=== PATIENT | female | born 1970 | race Caucasian/White ===

== ENCOUNTER 2022-10-02 08:30 | Inpatient (IN) | payer OTHER, SELFPAY ==
[2022-10-02] VITALS (21 sets, daily range): BP systolic 101–170; BP diastolic 57–104; PULSE 83–142; RESP 18–28; TEMP 36.2–36.7; O2SAT 93–98; BMI 53.4; BMI 50.7
--- NOTE | 2022-10-02 09:01 | EKG12_ITS ---
Test Reason : WEAKNESS Blood Pressure : / mmHG Vent. Rate : 135 BPM Atrial Rate : 000 BPM P-R Int : 000 ms QRS Dur : 090 ms QT Int : 266 ms P-R-T Axes : 000 -04 065 degrees QTc Int : 399 ms Atrial fibrillation with rapid ventricular response Abnormal ECG Confirmed by KLEBER MORROW, AMOS ([id number]), continuity editor NATALIE TRAVIS ([id number]) on 10/03/2022 8:26:21 AM Referred By: Confirmed By:AOMS SHAHID MD
--- NOTE | 2022-10-02 09:03 | EX.ED.DYSGE1 ---
HPI History of Present Illness Chief Complaint: Weakness Detail of Chief Complaint: I just do not feel right Informant: patient Narrative Narrative: Patient presents stating she just does not feel right and feels weak all over. She noted symptoms this morning. She does state that while lying in bed last evening she had a 15-minute episode of chest pain with some pain into her left arm. The pain subsided and she was able to go back to sleep. This morning she states she felt too weak to finish her shower. She did have some nausea. She denies any chest pain currently. She does have some palpitations and sensation of her heart racing. She did not take any of her normal medications this morning. [facility] Medical History Diabetes Hypertension Home Medications amlodipine 5 mg tablet 10 mg PO DAILY 09/24/16 [History Last Taken Unknown] glipizide 10 mg tablet, extended release 24 hr (Glucotrol XL) 10 mg PO BID 09/24/16 [History Last Taken Unknown] losartan 100 mg tablet 100 mg PO DAILY 09/24/16 [History Last Taken Unknown] metformin 1,000 mg tablet 1,000 mg PO BIDCM 09/24/16 [History Last Taken Unknown] metoprolol tartrate 50 mg tablet 50 mg PO BID 09/24/16 [History Last Taken Unknown] cholecalciferol (vitamin D3) 50 mcg (2,000 unit) tablet 50 mcg PO DAILY 10/02/22 [History Last Taken Unknown] semaglutide 0.25 mg or 0.5 mg (2 mg/1.5 mL) subcutaneous pen injector (Ozempic) 0.25 mg subcut SA 10/02/22 [History Last Taken Unknown] Allergy/AdvReac Type Severity Reaction Status Date / Time lisinopril AdvReac Other Verified 10/02/22 08:31 Surgical History H/O parathyroidectomy Social History Smoking Status: Former smoker ROS ROS ED Constitutional Constitutional ED: Denies chills or fever(s) Eyes Eyes: Denies change in vision or discharge from eye(s) ENT ENT ED: Denies discharge from eye(s), rhinorrhea or sore throat Cardiovascular Cardiovascular: Reports chest pain, palpitations and racing heartbeat Respiratory/Chest Respiratory/Chest: Denies cough or dyspnea Gastrointestinal Gastrointestinal: Reports nausea; Denies abdominal pain or vomiting Genitourinary Genitourinary ED: Denies dysuria Musculoskeletal Musculoskeletal: Denies back pain or extremity pain Integumentary Denies Abrasions or rash Neurologic Neurologic: Reports weakness; Denies headache(s) Psychiatric Psychiatric: Denies anxiety or depression Allergic/Immunologic Allergic/Immunologic ED: Denies lip swelling or urticaria EXAM Physical Exam Const Vital Signs: 10/02/22 08:31 10/02/22 08:54 10/02/22 08:54 Temperature 97.2 F L Temperature Source Temporal Pulse Rate 122 H 142 H Respiratory Rate 18 20 H Respiratory Effort Normal Non-Labored Respiratory Pattern Normal Blood Pressure 170/98 H 149/75 H Blood Pressure Mean 122 99 Pulse Ox 98 96 Oxygen Delivery Method Room Air Room Air Positive well nourished, well developed and obese General Appearance ED: well developed Nutritional Appearance: obese HEENT Reports normocephalic and head/scalp atraumatic Eyes PERRL and EOMs intact bilaterally Neck supple Chest Wall inspection of chest normal and palpation of chest normal Resp normal respiratory effort and clear to auscultation bilaterally Cardio Rhythm: abnormal rhythm irregularly irregular GI normal to inspection, nondistended, normoactive bowel sounds Palpation: soft Extremity normal to inspection Neuro oriented x3 and no sensory deficits noted Sensorium / Orientation: alert Motor Exam: strength 5/5 throughout Psych mental status grossly normal Skin no rashes or lesions noted MDM MDM MDM Narrative Medical decision making narrative: Patient placed on hall monitor. EKG, chest x-ray, lab work obtained. Patient ordered Cardizem for rate control. Lab Data Attestation: I reviewed the patient's lab results. Labs: Laboratory Results - last 24 hr 10/02/22 10/02/22 10/02/22 09:05 09:05 11:20 WBC 9.1 RBC 5.06 Hgb 15.1 H Hct 44.8 MCV 88.5 MCH 29.8 MCHC 33.7 RDW Std Deviation 43.0 RDW Coeff of Amilcar 13.3 Plt Count 352 MPV 9.5 Immature Gran % (Auto) 0.600 Neut % (Auto) 69.5 Lymph % (Auto) 23.1 [place] % (Auto) 5.2 Eos % (Auto) 0.9 Baso % (Auto) 0.7 Absolute Neuts (auto) 6.3 Absolute Lymphs (auto) 2.09 Nucleated RBC % 0 PT 13.5 INR 1.1 APTT 27.3 Sodium 132 L Potassium 4.4 Chloride 99 Carbon Dioxide 26.0 Anion Gap 7 BUN 16 Creatinine 0.84 Estim Creat Clear Calc 84.72 Est GFR (MDRD) Af Amer 92 Est GFR (MDRD) Non-Af 76 BUN/Creatinine Ratio 19.1 Glucose 350 H Calcium 9.2 Troponin I High Sens 6 TSH 6.15 H 10/02/22 11:20 WBC RBC Hgb Hct MCV MCH MCHC RDW Std Deviation RDW Coeff of Amilcar Plt Count MPV Immature Gran % (Auto) Neut % (Auto) Lymph % (Auto) [place] % (Auto) Eos % (Auto) Baso % (Auto) Absolute Neuts (auto) Absolute Lymphs (auto) Nucleated RBC % PT INR APTT Sodium Potassium Chloride Carbon Dioxide Anion Gap BUN Creatinine Estim Creat Clear Calc Est GFR (MDRD) Af Amer Est GFR (MDRD) Non-Af BUN/Creatinine Ratio Glucose Calcium Troponin I High Sens 8 TSH Radiography Chest X-Ray - ED: 1 View, Read by ED Physician and Chronic Changes Diagnostic Testing: Clinical Impression(s) from Imaging Studies Chest X-Ray 10/02/22 10:50 IMPRESSION: No acute cardiopulmonary disease. Electronically Signed: Júnior Serrano MD at 11:20 EST Reading Location ID and State: [facility] / [place] Tel , Service support , EKG Initial EKG: Attestation: I personally reviewed and interpreted this EKG as follows: Interpretation: Atrial Fibrillation (A. fib with rapid ventricular rate at 135. No acute ischemia.) Treatment and Re-Evaluation Narrative: CBC and chemistry studies grossly unremarkable other than elevated glucose at 350. Coags unremarkable. Initial troponin is 8. TSH is elevated at 6.15. T3 and free T4 are ordered. Patient's heart rate improved down to 115. Second dose of Cardizem has been ordered and is still pending at this time. Heart rate is starting to climb again. I will go ahead and give her 20 mg of Cardizem at this time and speak with hospitalist regarding admission. She did receive a dose of Lovenox. Discharge Plan Triage Chief Complaint: Weakness ED Provider: Nicole Fregoso Dx/Rx/DC Orders Prescriptions: No Action glipizide [Glucotrol XL] 10 MG tablet extended release 24hr 10 mg PO BID amlodipine 5 MG tablet 10 mg PO DAILY metformin 1,000 MG tablet 1,000 mg PO BIDCM metoprolol tartrate 50 MG tablet 50 mg PO BID losartan 100 MG tablet 100 mg PO DAILY cholecalciferol (vitamin D3) 50 mcg (2,000 unit) tablet 50 mcg PO DAILY Label Comments: TAKE 1 TABLET BY MOUTH ONCE DAILY Ozempic 0.25 mg or 0.5 mg(2 mg/1.5 mL) pen injector 0.25 mg SUBCUT SA Label Comments: INJECT 0.25 MG SUBCUTANEOUSLY ONE TIME A WEEK FOR 30 DAYS, THEN 0.5 MG ONE TIME A WEEK Primary Care Provider: Shane Velasco Referrals: Anita Mcbride MD [Non-Staff] -
--- NOTE | 2022-10-02 09:04 | NURSING ---
NO OLD EKGS
[2022-10-02 09:15] LABS: Absolute Lymphocyte Count 2.09 X10^3/uL (0.83-4.51); Absolute Neutrophil Count 6.3 X10^3/uL (2.0-7.7); Basophil# 0.06 X10^3/uL; Basophil% 0.7 % (0-1); Eosinophil# 0.08 X10^3/uL; Eosinophils% 0.9 % (0-5); Hematocrit 44.8 % (37-47); Hemoglobin 15.1 g/dL (12.0-15.0); Lymphocyte # 2.09 X10^3/ul (0.83-4.51); Lymphocyte % 23.1 % (19-41); Mean Corp Hgb Conc 33.7 g/dL (32-36); Mean Corpuscular Hgb 29.8 pg (27.0-32.0); Mean Corpuscular Volume 88.5 fL (81-99); Mean Platelet Vol. 9.5 fl (6.2-12.0); Monocyte# 0.47 X10^3/uL; Monocyte% 5.2 % (0-10); NRBC Flagged by Analyzer 0 % (0-5); Neutrophil % 69.5 % (47-70); Platelet Count 352 K/mm3 (150-450); RBC Distribution Width CV 13.3 % (11.6-14.6); Red Blood Count 5.06 M/mm3 (4.2-5.4); White Blood Count 9.1 K/mm3 (4.4-11.0)
[2022-10-02 09:38] LABS: Anion Gap 7 (5-15); BUN 16 mg/dL (7-18); BUN/Creat Ratio 19.1 RATIO (10-20); Calcium,Total 9.2 mg/dL (8.5-10.1); Chloride 99 mmol/L (98-107); Creatinine, Serum 0.84 mg/dL (0.55-1.02); EST Glomerular Filtration Rate 76 mL/min (>60); Est Glom Filt Rate - Afr Amer 92 mL/min (>60); Estimated Creatinine Clearance 84.72 ml/min; Glucose 350 mg/dL (74-106); Potassium 4.4 mmol/L (3.5-5.1); Sodium Level 132 mmol/L (136-145); Thyroid Stim Hormone (TSH) 6.15 uIU/mL (0.358-3.74); Troponin-I HS (w/2H Reflex) 6 pg/mL (3.0-54.0)
[2022-10-02] MEDS: 0.9% Normal Saline 1,000 ML 150 ML IV (09:48)
[2022-10-02] MEDS: dilTIAZem 25 MG/5 ML Vial 10 MG IV BOLUS (09:50)
--- NOTE | 2022-10-02 10:50 | RAD_ITS ---
EXAM: XR CHEST, 1 VIEW CLINICAL INDICATION: palpitations TECHNIQUE: Frontal view of the chest. This report was created using [employer] report generation technology. COMPARISON: None. FINDINGS: LUNGS AND PLEURAL SPACES: Normal. No consolidation or edema. No pneumothorax. No effusion. HEART: Normal heart size. MEDIASTINUM: No mediastinal or hilar mass. BONES/JOINTS: No acute abnormality. SOFT TISSUES: Normal. RAD/Chest 1 View (Portable) IMPRESSION: No acute cardiopulmonary disease. Electronically Signed: Júnior Serrano MD at 11:20 EST ,
[2022-10-02 11:11] LABS: Reflex Troponin-HS? (from REC) Y
[2022-10-02 11:35] LABS: International Normalized Ratio 1.1; Partial Thromboplast Time 27.3 Seconds (24.1-36.2); Prothrombin Time (Protime)PT. 13.5 SECONDS (11.7-14.9)
[2022-10-02 11:43] LABS: Troponin-I HS 8 pg/mL (3.0-54.0)
[2022-10-02] MEDS: dilTIAZem 25 MG/5 ML Vial 20 MG IV BOLUS (12:10)
[2022-10-02] MEDS: Enoxaparin 150 MG/ML Syringe SC (12:10)
--- NOTE | 2022-10-02 12:11 | PCM.HP.STD ---
HPI - General General Date of Admission: 10/02/22 Date of Service: 10/02/22 Chief Complaint: Chest pain last night associated with shortness of breath, could not sleep HPI Narrative WAQAR SINGLETON, is a 52 F with history of diabetes mellitus type 2, hypertension and morbid obesity came to ED for chest pain and associated shortness of breath last night. She had chest pain that felt like pressure or a squeezing sensation on left side with radiation to left arm, 4-5/10 intensity associated with shortness of breath, mild nausea, dizziness and vertigo. She denies passing out. She felt like her heart racing about yesterday and in the morning. She had chest pain in the past but it was more like a dyspeptic/gas?described. This time chest pain was of different quality and type. In the morning when she woke up she felt no energy for taking a shower therefore came to ED. In ED she was found to have A. fib with RVR. Twelve-lead EKG, individually reviewed and shows A. fib with RVR at 135 bpm, QTC 399 ms. In ED her heart rate is still fluctuates between 100s to 120s even after 2 doses of Cardizem 20 mg IV bolus. Chest x-ray individually reviewed and no acute abnormality. 2 serial troponins negative. Currently she does not have chest pain. Rest of the blood work discussed in assessment plan [facility] Medical History Diabetes Hypertension Home Medications amlodipine 5 mg tablet 10 mg PO DAILY 09/24/16 [History Last Taken Unknown] glipizide 10 mg tablet, extended release 24 hr (Glucotrol XL) 10 mg PO BID 09/24/16 [History Last Taken Unknown] losartan 100 mg tablet 100 mg PO DAILY 09/24/16 [History Last Taken Unknown] metformin 1,000 mg tablet 1,000 mg PO BIDCM 09/24/16 [History Last Taken Unknown] metoprolol tartrate 50 mg tablet 50 mg PO BID 09/24/16 [History Last Taken Unknown] cholecalciferol (vitamin D3) 50 mcg (2,000 unit) tablet 50 mcg PO DAILY 10/02/22 [History Last Taken Unknown] semaglutide 0.25 mg or 0.5 mg (2 mg/1.5 mL) subcutaneous pen injector (Ozempic) 0.25 mg subcut SA 10/02/22 [History Last Taken Unknown] valacyclovir 500 mg tablet 500 mg PO DAILY 10/02/22 [History Last Taken 10/01/22] Allergy/AdvReac Type Severity Reaction Status Date / Time lisinopril AdvReac Other Verified 10/02/22 08:31 Surgical History H/O parathyroidectomy Social History Smoking Status: Former smoker ROS ROS Narrative Constitutional: Reports fatigue and weakness with no energy. HEENT: Reports systems reviewed and no addt'l complaints, except as documented Respiratory/Chest: As described in HPI Gastrointestinal: Denies coffee ground emesis, hematemesis or vomiting Genitourinary: Denies burning urination or new urinary tract symptoms Musculoskeletal: Arthritis mild joint pain and limited range of motion Neurologic: Denies seizure-like activity skin: No ulcer. No rash Endocrinology: Uncontrolled diabetes. Hyperglycemia. Reports systems reviewed and no addt'l complaints, except as documented Hematologic/Lymphatic: Mild leg swelling especially on prolonged standing and walking, probably lymphedema. Reports systems reviewed and no addt'l complaints, except as documented Rest 14 ROS are negative except as mentioned in HPI Vital Signs Vital Signs Vital Signs: 10/02/22 08:31 10/02/22 08:54 10/02/22 08:54 Temperature 97.2 F L Temperature Source Temporal Pulse Rate 122 H 142 H Respiratory Rate 18 20 H Respiratory Effort Normal Non-Labored Respiratory Pattern Normal Blood Pressure 170/98 H 149/75 H Blood Pressure Mean 122 99 Pulse Ox 98 96 Oxygen Delivery Method Room Air Room Air 10/02/22 11:58 Temperature Temperature Source Pulse Rate 117 H Respiratory Rate 18 Respiratory Effort Respiratory Pattern Blood Pressure 118/74 Blood Pressure Mean 88 Pulse Ox 96 Oxygen Delivery Method Room Air Weight Weight: 372 lb Body Mass Index (BMI) 53.4 Physical Exam Narrative General: Alert, Oriented x3, Cooperative, morbid obesity BMI 53.4 kg/m? HEENT: Atraumatic, PERRLA, EOMI, Normocephalic Oral: Deep oropharyngeal could not be visualized. No oral ulcer. Neck: Supple, No JVD, Negative Carotid Bruits Lungs: Air entry diminished in bilateral lung bases. No crepitation/rhonchi Cardiovascular: A. fib RVR, Normal S1, Normal S2, No murmurs Abdomen: Bowel Sounds Present, Soft, Non Tender, Non-Distended : No renal angle tenderness. No suprapubic tenderness. Extremities: Mild nonpitting edema, Capillary Refill Less than 3 Seconds Skin: No rashes, No breakdown Musculoskeletal: No Tenderness to Palpation of Joints or Extremities, ROM restricted. Neurological: Cranial nerves II-XII grossly intact, DTR 2+/4 and Symmetrical, Neuro grossly intact Psych/Mental Status: Normal Affect, Appropriate. Results Lab / Micro Data Result Diagrams: 10/02/22 09:05 10/02/22 09:05 Labs: Laboratory Results - last 24 hr 10/02/22 09:05: WBC 9.1, RBC 5.06, Hgb 15.1 H, Hct 44.8, MCV 88.5, MCH 29.8, MCHC 33.7, RDW Std Deviation 43.0, RDW Coeff of Amilcar 13.3, Plt Count 352, MPV 9.5, Immature Gran % (Auto) 0.600, Neut % (Auto) 69.5, Lymph % (Auto) 23.1, [place] % (Auto) 5.2, Eos % (Auto) 0.9, Baso % (Auto) 0.7, Absolute Neuts (auto) 6.3, Absolute Lymphs (auto) 2.09, Nucleated RBC % 0 10/02/22 09:05: Sodium 132 L, Potassium 4.4, Chloride 99, Carbon Dioxide 26.0, Anion Gap 7, BUN 16, Creatinine 0.84, Estim Creat Clear Calc 84.72, Est GFR (MDRD) Af Amer 92, Est GFR (MDRD) Non-Af 76, BUN/Creatinine Ratio 19.1, Glucose 350 H, Calcium 9.2, Troponin I High Sens 6, TSH 6.15 H 10/02/22 11:20: PT 13.5, INR 1.1, APTT 27.3 10/02/22 11:20: Troponin I High Sens 8 Radiology Impression Chest X-Ray 10/02/22 10:50 IMPRESSION: No acute cardiopulmonary disease. Electronically Signed: Júnior Serrano MD at 11:20 EST , Assessment & Plan Assessment/Plan (1) A-fib: PLAN: This is a 52-year-old female coming to ED for chest pain/pressure/shortness of breath and found to be new onset A. fib with RVR. 1. New onset A. fib with RVR: Patient heart rate still not controlled. Patient is being admitted in PCU. [id number] score is 3. Patient was given Lovenox 1 mg/kg body weight first dose in the ED. Started on Cardizem drip 10 mg/h, Eliquis 5 mg twice daily. 2D echo is ordered. Metoprolol dose increased from 50 mg to 100 mg twice daily. TSH is elevated. Free T4 and total T3 ordered from ED. 2. Atypical chest pain possible related to palpitations/A. fib RVR: 2 serial high-sensitivity troponins were negative therefore ACS ruled out. CULLEN risk score is 1. Patient advised to follow with PCP for outpatient stress test as currently stress test controlled. With A. fib with RVR. 3. Diabetes mellitus type II with uncontrolled hyperglycemia: She was recently added Ozempic, semaglutide by PCP. Her metformin is held. Continue glipizide. Accu-Chek H&H's covered with Humalog sliding scale. Lantus 10 units subcutaneous daily. 4. Hypertension uncontrolled: BP was high when she came to ED 170/90. Currently improved. 5. Morbid obesity: BMI 53. 4 kg/m?. Weight loss counseling done. VTE prophylaxis: On therapeutic dose of Lovenox as per A. fib Living will/advanced directive/end of life care: Patient does not have living will or advanced directive. Her daughter sitting at the bedside in ED is next to kin. After discussion of benefits/risks procedures involved with full code, DNR CC arrest and DNR CC, the patient opted for full code. Patient does want artificial life support including intubation, tube feed, ventilator and/chest compression, central venous catheter, vasopressor and DC shock if needed Total time spent in [id number] encounter in discussion of advanced directive 16 minutes. Charges/Coding Visit Charges OBSV E&M: 61804 Initial observation care L3 Procedures Hospitalists Procedures: 60085 Advncd Care Plan 30 Min
[2022-10-02] MEDS: metFORMIN HCl 1,000 MG Tablet 1000 MG PO (12:39)
[2022-10-02] MEDS: glipiZIDE XL 5 MG Tablet 10 MG PO ×2 (12:39→17:00)
[2022-10-02 13:24] LABS: Phosphorus 3.4 mg/dL (2.5-4.9)
[2022-10-02 13:25] LABS: Magnesium 1.8 mg/dL (1.6-2.6); T4 Free Direct 1.03 ng/dL (0.76-1.46)
[2022-10-02 13:34] LABS: T3 Total - Triiodothyronine 1.17 ng/mL (0.6-1.81)
--- NOTE | 2022-10-02 13:39 | ECHOCS_ITS ---
Reason For Study: AFIB/FLUTTER Procedure This was a 2D Doppler, Color Flow transthoracic echocardiogram. The study was technically difficult. The study was technically limited. Due to morbid obesity. Contrast injection was performed. Exam performed portable in patient room. Left Ventricle Normal LV size. Left ventricular systolic function is normal. The estimated ejection fraction is 65 %. No regional wall motion abnormalities noted. Right Ventricle Normal right ventricle. Atria The left atrium is not well visualized. The right atrium is not well visualized. Mitral Valve Mitral valve not well visualized. Tricuspid Valve The tricuspid valve is not well visualized. Aortic Valve The aortic valve is not well visualized. Great Vessels Normal aortic root. Pericardium/Pleural No pericardial effusion. Medication Diluted definity 5.0ml given slow IV push to enhance endocardial definition. MMode/2D Measurements & Calculations RVDd: 3.2 cm Ao root diam: 3.4 cm LAV(MOD-bp): 81.0 ml LAV(MOD-bp) Indexed: 30.8 ml/m2 LAV(MOD-sp2): 82.7 ml LAV(MOD-sp4): 81.7 ml SV(MOD-sp4): 68.5 ml LVAd ap4: 32.4 cm2 LVAd ap2: 26.2 cm2 LVLd ap4: 8.8 cm LVLd ap2: 8.2 cm EDV(MOD-sp4): 97.6 ml EDV(MOD-sp2): 68.3 ml EDV(sp4-el): 101.2 ml EDV(sp2-el): 71.1 ml LVAs ap4: 15.5 cm2 LVAs ap2: 13.0 cm2 LVLs ap4: 6.8 cm LVLs ap2: 6.4 cm ESV(MOD-sp4): 29.1 ml ESV(MOD-sp2): 22.5 ml ESV(sp4-el): 29.7 ml ESV(sp2-el): 22.4 ml EF(MOD-sp4): 70.1 % EF(MOD-sp2): 67.1 % EF(sp4-el): 70.7 % SV(MOD-sp2): 45.8 ml SV(sp4-el): 71.5 ml LA A4 area: 26.0 cm2 LA dimension(2D): 4.0 cm Doppler Measurements & Calculations MV E max luc: 87.2 cm/sec Ao V2 max: 177.6 cm/sec LV V1 max: 108.4 cm/sec Ao max P.6 mmHg LV V1 max P.7 mmHg PA V2 max: 79.1 cm/sec ECHO/Echo Complete W/ Contrast Interpretation Summary Normal LV size. Left ventricular systolic function is normal. The estimated ejection fraction is 65 %. Contrast injection was performed. The study was technically limited. The study was technically difficult. Ordering Physician: Garry Ross Referring Physician: Shane Velasco Performed By: Mary Jimenez, MIKY, RVT
[2022-10-02 14:28] LABS: Troponin-I HS 8 pg/mL (3.0-54.0)
[2022-10-02] MEDS: Metoprolol Tartrate 100 MG Tablet PO (20:35)
[2022-10-02] MEDS: APIXABAN 5 MG TABLET PO (20:35)
[2022-10-03] VITALS (24 sets, daily range): BP systolic 98–155; BP diastolic 67–105; PULSE 79–104; RESP 16–22; TEMP 36.6–37.1; O2SAT 90–97
[2022-10-03 05:28] LABS: Absolute Lymphocyte Count 2.77 X10^3/uL (0.83-4.51); Absolute Neutrophil Count 4.9 X10^3/uL (2.0-7.7); Basophil# 0.06 X10^3/uL; Basophil% 0.7 % (0-1); Eosinophil# 0.12 X10^3/uL; Eosinophils% 1.4 % (0-5); Hematocrit 40.4 % (37-47); Hemoglobin 13.5 g/dL (12.0-15.0); Lymphocyte # 2.77 X10^3/ul (0.83-4.51); Lymphocyte % 33.3 % (19-41); Mean Corp Hgb Conc 33.4 g/dL (32-36); Mean Corpuscular Hgb 29.5 pg (27.0-32.0); Mean Corpuscular Volume 88.2 fL (81-99); Mean Platelet Vol. 9.7 fl (6.2-12.0); Monocyte# 0.46 X10^3/uL; Monocyte% 5.5 % (0-10); NRBC Flagged by Analyzer 0 % (0-5); Neutrophil # 4.88 X10^3/uL (2.7-7.7); Neutrophil % 58.9 % (47-70); Platelet Count 312 K/mm3 (150-450); RBC Distribution Width CV 13.4 % (11.6-14.6); RBC Distribution Width SD 43.3 fl (35.1-43.9); Red Blood Count 4.58 M/mm3 (4.2-5.4); White Blood Count 8.3 K/mm3 (4.4-11.0)
[2022-10-03 06:08] LABS: Anion Gap 9 (5-15); BUN 21 mg/dL (7-18); BUN/Creat Ratio 28.5 RATIO (10-20); Chloride 102 mmol/L (98-107); Cholesterol 171 mg/dL (200); Creatinine, Serum 0.74 mg/dL (0.55-1.02); EST Glomerular Filtration Rate 88 mL/min (>60); Est Glom Filt Rate - Afr Amer 106 mL/min (>60); Estimated Creatinine Clearance 96.17 ml/min; Glucose 297 mg/dL (74-106); High Density Lipoprotein 26 mg/dL; Potassium 4.4 mmol/L (3.5-5.1); Sodium Level 133 mmol/L (136-145); Triglycerides 398 mg/dL; Very Low Density Lipoprotein 80 mg/dL (5-40)
[2022-10-03] MEDS: Cholecalciferol (VIT D3) 25 MCG TABLET (1,000 UNITS) 50 MCG PO (08:27)
[2022-10-03] MEDS: amLODIPine 10 MG Tablet PO (08:27)
[2022-10-03] MEDS: Metoprolol Tartrate 100 MG Tablet PO ×2 (08:28→21:22)
[2022-10-03] MEDS: glipiZIDE XL 5 MG Tablet 10 MG PO ×2 (08:28→16:20)
[2022-10-03] MEDS: APIXABAN 5 MG TABLET PO ×2 (08:28→21:22)
[2022-10-03] MEDS: Losartan Potassium 100 MG Tablet PO (08:28)
--- NOTE | 2022-10-03 09:27 | PN.HOSP_ITS ---
Subjective Subjective Follow-up for A. fib with RVR. New onset Objective Data Objective Data Vital Signs: Vital Signs Temp Pulse Resp BP Pulse Ox O2 Del Method 98.0 F 91 18 123/94 H 96 Room Air 10/03/22 08:34 10/03/22 08:34 10/03/22 08:34 10/03/22 08:34 10/03/22 08:34 10/03/22 08:34 Oxygen Delivery Method Room Air Weight: 352 lb 8.306 oz Body Mass Index (BMI) 50.7 Intake & Output: Intake and Output for Last 24 Hours 10/01/22 10/02/22 10/03/22 23:59 23:59 23:59 Intake Total 830.5 / 1145.5 443.50 / 443.50 Balance 830.5 / 1145.5 443.50 / 443.50 Lab / Micro Data Result Diagrams: 10/03/22 04:27 10/03/22 04:27 Labs: Laboratory Results - last 24 hr 10/02/22 09:05: Sodium 132 L, Potassium 4.4, Chloride 99, Carbon Dioxide 26.0, Anion Gap 7, BUN 16, Creatinine 0.84, Estim Creat Clear Calc 84.72, Est GFR (MDRD) Af Amer 92, Est GFR (MDRD) Non-Af 76, BUN/Creatinine Ratio 19.1, Glucose 350 H, Calcium 9.2, Troponin I High Sens 6, TSH 6.15 H 10/02/22 11:20: PT 13.5, INR 1.1, APTT 27.3 10/02/22 11:20: Troponin I High Sens 8 10/02/22 11:20: Total T3 1.17 10/02/22 11:20: Magnesium 1.8, Free T4 1.03 10/02/22 11:20: Phosphorus 3.4 10/02/22 14:05: Troponin I High Sens 8 10/03/22 04:27: WBC 8.3, RBC 4.58, Hgb 13.5, Hct 40.4, MCV 88.2, MCH 29.5, MCHC 33.4, RDW Std Deviation 43.3, RDW Coeff of Amilcar 13.4, Plt Count 312, MPV 9.7, Immature Gran % (Auto) 0.200, Neut % (Auto) 58.9, Lymph % (Auto) 33.3, [place] % (Auto) 5.5, Eos % (Auto) 1.4, Baso % (Auto) 0.7, Absolute Neuts (auto) 4.9, Absolute Lymphs (auto) 2.77, Nucleated RBC % 0 10/03/22 04:27: Sodium 133 L, Potassium 4.4, Chloride 102, Carbon Dioxide 22.0, Anion Gap 9, BUN 21 H, Creatinine 0.74, Estim Creat Clear Calc 96.17, Est GFR (MDRD) Af Amer 106, Est GFR (MDRD) Non-Af 88, BUN/Creatinine Ratio 28.5 H, Glucose 297 H, Calcium 9.0, Triglycerides 398 H, Cholesterol 171, LDL Cholesterol 65, VLDL Cholesterol 80 H, HDL Cholesterol 26 L Radiography Diagnostic Testing: Radiology Impression Chest X-Ray 10/02/22 10:50 IMPRESSION: No acute cardiopulmonary disease. Electronically Signed: Júnior Serrano MD at 11:20 EST , Echocardiogram 10/02/22 13:39 Interpretation Summary Normal LV size. Left ventricular systolic function is normal. The estimated ejection fraction is 65 %. Contrast injection was performed. The study was technically limited. The study was technically difficult. Ordering Physician: Garry Ross Referring Physician: Shane Velasco Performed By: Mary Jimenez, MIKY, RVT Physical Exam Narrative environmental coordinator reviewed. Patient is still in A. fib with heart rate in 90s. No chest pain or shortness of breath. General: Alert, Oriented x3, Cooperative, morbid obesity BMI 53.4 kg/m? HEENT: Atraumatic, PERRLA, EOMI, Normocephalic Oral: Deep oropharyngeal could not be visualized. No oral ulcer. Neck: Supple, No JVD, Negative Carotid Bruits Lungs: Air entry diminished in bilateral lung bases. No crepitation/rhonchi Cardiovascular: A. fib, heart rate controlled, Normal S1, Normal S2, No murmurs Abdomen: Bowel Sounds Present, Soft, Non Tender, Non-Distended : No renal angle tenderness. No suprapubic tenderness. Extremities: Mild nonpitting edema, Capillary Refill Less than 3 Seconds Skin: No rashes, No breakdown Musculoskeletal: No Tenderness to Palpation of Joints or Extremities, ROM restricted. Neurological: Cranial nerves II-XII grossly intact, DTR 2+/4 and Symmetrical, Neuro grossly intact Psych/Mental Status: Normal Affect, Appropriate. Assessment & Plan Assessment/Plan (1) A-fib: PLAN: This is a 52-year-old female coming to ED for chest pain/pressure/shortness of breath and found to be new onset A. fib with RVR. 1. New onset A. fib with RVR: Patient heart rate still not controlled. Patient is being admitted in PCU. [id number] score is 3. Patient was given Lovenox 1 mg/kg body weight first dose in the ED. Started on Cardizem drip 10 mg/h, Eliquis 5 mg twice daily. 2D echo is ordered. Metoprolol dose increased from 50 mg to 100 mg twice daily. TSH is elevated. Free T4 and total T3 ordered from ED. 10/03: Free T4 and total T3 normal range. Try to taper down Cardizem drip. Started on Cardizem CD 120 mg p.o. twice daily and keep metoprolol 100 mg p.o. twice daily. Discussed with the nursing staff. Patient does not follow-up with cardiology office with 3 weeks of anticoagulation for a trial of cardioversion. 2. Atypical chest pain possible related to palpitations/A. fib RVR: CULLEN risk score is 1. Patient advised to follow with PCP for outpatient stress test as currently stress test controlled. With A. fib with RVR. 10/03: ACS ruled out with 3 negative troponins. Rest as mentioned above. 3. Diabetes mellitus type II with uncontrolled hyperglycemia: She was recently added Ozempic, semaglutide by PCP. Her metformin is held. Continue glipizide. Accu-Chek H&H's covered with Humalog sliding scale. Lantus 10 units subcutaneous daily. 10/03: Glucose is high, 297. Lantus dose increased. 4. Hypertension uncontrolled: BP was high when she came to ED 170/90. Currently improved. 5. Morbid obesity: BMI 53. 4 kg/m?. Weight loss counseling done. 6. Dyslipidemia: Patient LDL 65 but HDL 26, low and triglyceride is 398. Atorv astatin 40 mg daily added. VTE prophylaxis: On therapeutic dose of Lovenox as per A. fib Living will/advanced directive/end of life care: Patient does not have living will or advanced directive. Her daughter sitting at the bedside in ED is next to kin. After discussion of benefits/risks procedures involved with full code, DNR CC arrest and DNR CC, the patient opted for full code. Patient does want artificial life support including intubation, tube feed, ventilator and/chest compression, central venous catheter, vasopressor and DC shock if needed Total time spent in [id number] encounter in discussion of advanced directive 16 minutes. Laboratory Results 10/02/22 09:05: Sodium 132 L, Potassium 4.4, Chloride 99, Carbon Dioxide 26.0, Anion Gap 7, BUN 16, Creatinine 0.84, Estim Creat Clear Calc 84.72, Est GFR (MDRD) Af Amer 92, Est GFR (MDRD) Non-Af 76, BUN/Creatinine Ratio 19.1, Glucose 350 H, Calcium 9.2, Troponin I High Sens 6, TSH 6.15 H 10/02/22 11:20: PT 13.5, INR 1.1, APTT 27.3 10/02/22 11:20: Troponin I High Sens 8 10/02/22 11:20: Total T3 1.17 10/02/22 11:20: Magnesium 1.8, Free T4 1.03 10/02/22 11:20: Phosphorus 3.4 10/02/22 14:05: Troponin I High Sens 8 10/03/22 04:27: WBC 8.3, RBC 4.58, Hgb 13.5, Hct 40.4, MCV 88.2, MCH 29.5, MCHC 33.4, RDW Std Deviation 43.3, RDW Coeff of Amilcar 13.4, Plt Count 312, MPV 9.7, Immature Gran % (Auto) 0.200, Neut % (Auto) 58.9, Lymph % (Auto) 33.3, [place] % (Auto) 5.5, Eos % (Auto) 1.4, Baso % (Auto) 0.7, Absolute Neuts (auto) 4.9, Absolute Lymphs (auto) 2.77, Nucleated RBC % 0 10/03/22 04:27: Sodium 133 L, Potassium 4.4, Chloride 102, Carbon Dioxide 22.0, Anion Gap 9, BUN 21 H, Creatinine 0.74, Estim Creat Clear Calc 96.17, Est GFR (MDRD) Af Amer 106, Est GFR (MDRD) Non-Af 88, BUN/Creatinine Ratio 28.5 H, Gl ucose 297 H, Calcium 9.0, Triglycerides 398 H, Cholesterol 171, LDL Cholesterol 65, VLDL Cholesterol 80 H, HDL Cholesterol 26 L Charges/Coding Visit Charges Inpatient E&M: 35345 Subs Hosp L2
[2022-10-03 09:57] LABS: AST(SGOT) 24 U/L (15-37); Alanine Aminotransfer ALT/SGPT 46 U/L (13-56); Albumin, Serum 3.2 g/dL (3.2-5.0); Alkaline Phosphatase 63 U/L (45-117); Bilirubin, Direct 0.12 mg/dL (0.00-0.30); Globulin 3.9 g/dL (2.2-4.2); Protein, Total 7.1 g/dL (6.4-8.2)
[2022-10-03] MEDS: Insulin Lispro 100 UNIT/ML INSULN.PEN SC ×3 (10:27→21:22)
[2022-10-03] MEDS: dilTIAZem CD 120 MG Capsule PO ×2 (10:27→21:22)
[2022-10-03] MEDS: Insulin Glargine-YFGN 100 UNIT/ML Pen 15 UNIT SC (10:28)
[2022-10-03 10:56] LABS: Bedside Glucose 318 mg/dL (74-106)
--- NOTE | 2022-10-03 11:45 | CASEMGMT ---
RN CM TUMBLER MACHINE OPERATOR CM to room to meet with patient for initial transition planning/care coordination assessment. SILVANO CASTILLO introduced self and role at [facility]. Pt voices understanding and consents to assessment at this time. Pt sitting up in chair in room in no distress at this time. Pt is A/O at this time and answers all questions appropriately. Care providers, pharmacy, and demographics verified/updated at this time. PCP: Dr Velasco Specialists:none [facility]erred [facility]acy: [facility] Insurance: [employer] Prescription Benefit: Yes Living Will/HPOA: Pt does not currently have LW/HCPOA and would like to talk w/SW to complete. SW, Loretta, made aware. Pt made aware if SW unable to meet w/her while @ [facility] that she can contact SW as an out-pt and make appt in the future. Pt provided w/Tenant Coordinator Rac card with information and contact number. Pt expresses understanding. LNOK: Daughter, Jolanta. Living Arrangements: Lives alone in one-story apt w/no steps to enter. Independent. Works full-time. Transportation: Pt states drives self and states no transportation concerns at this time. DME: Has functioning glucometer w/supplies. HHC/SNF: No hx of either. No needs identified. Pt wishes to return home and states has no concerns with going home at time of discharge. CM to follow any discharge planning/needs. Pt voices no further concerns/needs at this time. Advised pt to ask for CM if any further questions/concerns/needs arise. Voices understanding. PLAN: Home Enriqueta ANGUIANO RN, CM
[2022-10-03 17:05] LABS: Bedside Glucose 221 mg/dL (74-106)
[2022-10-03] MEDS: Atorvastatin Calcium 40 MG Tablet PO (21:22)
[2022-10-04] VITALS (7 sets, daily range): BP systolic 123–142; BP diastolic 86–90; PULSE 84–97; RESP 16–18; TEMP 36.7–37.1; O2SAT 93–95
[2022-10-04 00:10] LABS: Bedside Glucose 233 mg/dL (74-106)
[2022-10-04] MEDS: Insulin Lispro 100 UNIT/ML INSULN.PEN SC ×2 (06:22→10:53)
[2022-10-04 06:45] LABS: Bedside Glucose 294 mg/dL (74-106)
[2022-10-04] MEDS: Cholecalciferol (VIT D3) 25 MCG TABLET (1,000 UNITS) 50 MCG PO (08:44)
[2022-10-04] MEDS: Losartan Potassium 100 MG Tablet PO (08:44)
[2022-10-04] MEDS: APIXABAN 5 MG TABLET PO (08:44)
[2022-10-04] MEDS: glipiZIDE XL 5 MG Tablet 10 MG PO (08:44)
[2022-10-04] MEDS: dilTIAZem CD 120 MG Capsule PO (08:44)
[2022-10-04] MEDS: Metoprolol Tartrate 100 MG Tablet PO (08:44)
[2022-10-04] MEDS: amLODIPine 10 MG Tablet PO (08:44)
[2022-10-04] MEDS: Insulin Glargine-YFGN 100 UNIT/ML Pen 15 UNIT SC (08:46)
--- NOTE | 2022-10-04 10:29 | DCINST_ITS ---
Discharge Instructions Diet Discharge Diet: Low fat / Low cholesterol, 1800 Calorie Control Diet and 2000 mg Sodium Diet Dressing / Incision Call your doctor if you observe: Fever of 101 or Higher, Coldness, Increased Pain, Numbness or Tingling, Change in Color, Inability to urinate, Inability to have a bowel movement, Shortness of breath, Dizziness, Fainting spells, Swelling in the ankles, Chest pain, Prolonged hiccupping, Increased palpitations (irregular heartbeat), Calf discomfort and Uncontrolled pain Follow Up Care Test Results: Test results from this visit will be discussed in further detail at your follow- up appointment, if applicable. Discharge Plan Admission Admit Date/Time: 10/02/22 12:04 Attending Provider: Garry Ross Primary Care Provider: Shane Velasco Discharge Orders/Prescriptions Prescriptions: New metoprolol tartrate 100 mg Tablet 100 mg PO BID Qty: 60 2RF Eliquis 5 mg Tablet 5 mg PO BID Qty: 60 2RF atorvastatin 40 mg Tablet 40 mg PO QHS Qty: 30 2RF sennosides-docusate sodium [Stool Softener-Stimulant Laxat] 8.6-50 mg Tablet 2 tab PO BID PRN PRN (Reason: Constipation) Qty: 0 0RF diltiazem HCl 120 mg Capsule,Extended Release 24hr 180 mg PO Q12 Qty: 60 2RF Continued glipizide [Glucotrol XL] 10 MG tablet extended release 24hr 10 mg PO BID amlodipine 5 MG tablet 10 mg PO DAILY metformin 1,000 MG tablet 1,000 mg PO BIDCM losartan 100 MG tablet 100 mg PO DAILY cholecalciferol (vitamin D3) 50 mcg (2,000 unit) tablet 50 mcg PO DAILY Label Comments: TAKE 1 TABLET BY MOUTH ONCE DAILY Ozempic 0.25 mg or 0.5 mg(2 mg/1.5 mL) pen injector 0.25 mg SUBCUT SA Label Comments: INJECT 0.25 MG SUBCUTANEOUSLY ONE TIME A WEEK FOR 30 DAYS, THEN 0.5 MG ONE TIME A WEEK valacyclovir 500 mg tablet 500 mg PO DAILY Label Comments: TAKE 1 TABLET BY MOUTH ONCE DAILY. PATIENT WILL NEED TO BE SEEN BEFORE ANYMORE REFILLS Discontinued metoprolol tartrate 50 MG tablet 50 mg PO BID Referrals / Follow Up: Oral Tran MD [Med Staff - Active Staff] - Within 1 Month (in 3-4 weeks for trial of cardioversion) Shane Velasco MD [Primary Care Provider] - Within 2 Weeks (for new onset Afib) Anita Mcbride MD [Non-Staff] - Disposition Disposition (needs filled in before D/C Order can be placed): Home, Self Care
[2022-10-04 10:56] LABS: Bedside Glucose 279 mg/dL (74-106)
--- NOTE | 2022-10-04 11:35 | PCM.DC.SUM ---
Providers Date of Admission: 10/02/22 Date of Discharge: 10/04/22 Primary Care Physician: Dr. Shane Velasco MD Reason For Visit: CHEST PAIN, NEW ONSET AFIB Diagnosis Discharge Diagnosis (1) A-fib: Status: Acute Code(s): I48.91 - Unspecified atrial fibrillation Medications at Discharge Home Medications amlodipine 5 mg tablet 10 mg PO DAILY 09/24/16 glipizide 10 mg tablet, extended release 24 hr (Glucotrol XL) 10 mg PO BID 09/24/16 losartan 100 mg tablet 100 mg PO DAILY 09/24/16 metformin 1,000 mg tablet 1,000 mg PO BIDCM 09/24/16 cholecalciferol (vitamin D3) 50 mcg (2,000 unit) tablet 50 mcg PO DAILY 10/02/22 semaglutide 0.25 mg or 0.5 mg (2 mg/1.5 mL) subcutaneous pen injector (Ozempic) 0.25 mg subcut SA 10/02/22 valacyclovir 500 mg tablet 500 mg PO DAILY 10/02/22 apixaban 5 mg tablet (Eliquis) 5 mg PO BID #60 tabs 10/04/22 atorvastatin 40 mg tablet 40 mg PO QHS #30 tabs 10/04/22 diltiazem HCl 120 mg capsule,extended release 24 hr 180 mg PO Q12 #60 caps 10/04/22 metoprolol tartrate 100 mg tablet 100 mg PO BID #60 tabs 10/04/22 sennosides 8.6 mg-docusate sodium 50 mg tablet (Stool Softener-Stimulant Laxative) 2 tab PO BID PRN PRN Constipation #0 tabs 10/04/22 Hospital Course Summary of Care Provided Hospital Course: This is a 52-year-old female coming to ED for chest pain/pressure/shortness of breath and found to be new onset A. fib with RVR. 1. New onset A. fib with RVR: Patient heart rate still not controlled. Patient is being admitted in PCU. [id number] score is 3. Patient was given Lovenox 1 mg/kg body weight first dose in the ED. Started on Cardizem drip 10 mg/h, Eliquis 5 mg twice daily. 2D echo is ordered. Metoprolol dose increased from 50 mg to 100 mg twice daily. TSH is elevated. Free T4 and total T3 ordered from ED. 10/03: Free T4 and total T3 normal range. Try to taper down Cardizem drip. Started on Cardizem CD 120 mg p.o. twice daily and keep metoprolol 100 mg p.o. twice daily. Patient does have follow-up with cardiology office with 3 weeks of anticoagulation for a trial of cardioversion. 10/04: Patient heart rate during low 90s. Her baseline heart rate is 60 to 80/min. Cardizem CD dose increased to 180 mg twice daily and rest of the medications have remained the same. Prescription given for Cardizem CD, metoprolol, apixaban and atorvastatin. 2. Atypical chest pain possible related to palpitations/A. fib RVR: CULLEN risk score is 1. Patient advised to follow with PCP for outpatient stress test as currently stress test controlled. With A. fib with RVR. 10/03: ACS ruled out with 3 negative troponins. Rest as mentioned above. 3. Diabetes mellitus type II with uncontrolled hyperglycemia: She was recently added Ozempic, semaglutide by PCP. Her metformin is held. Continue glipizide. Accu-Chek H&H's covered with Humalog sliding scale. Lantus 10 units subcutaneous daily. 10/03: Glucose is high, 297. Lantus dose increased. 10/04: Follow-up with PCP. Patient is on Ozempic. 4. Hypertension uncontrolled: BP was high when she came to ED 170/90. Currently improved. 5. Morbid obesity: BMI 53. 4 kg/m?. Weight loss counseling done. 6. Dyslipidemia: Patient LDL 65 but HDL 26, low and triglyceride is 398. Atorvastatin 40 mg daily at bedtime, prescription given VTE prophylaxis: On apixaban Discharge medication reconciliation done. Discharge follow-up instructions completed. Discharge process discussed with the patient and all questions were answered to patient's satisfaction. Follow-up with Dr. Tran. She agreed for enrollment in [facility], discussed with Loretta Woods. Total time spent, exact 35 minutes on discharge meds reconciliation, examination, coordination of care with nurses and ancillary staff, review of imaging and blood test and discussion with the patient on follow-up instructions. Living will/advanced directive/end of life care: Patient does not have living will or advanced directive. Her daughter sitting at the bedside in ED is next to kin. After discussion of benefits/risks procedures involved with full code, DNR CC arrest and DNR CC, the patient opted for full code. Patient does want artificial life support including intubation, tube feed, ventilator and/chest compression, central venous catheter, vasopressor and DC shock if needed Laboratory Results 10/02/22 09:05: Sodium 132 L, Potassium 4.4, Chloride 99, Carbon Dioxide 26.0, Anion Gap 7, BUN 16, Creatinine 0.84, Estim Creat Clear Calc 84.72, Est GFR (MDRD) Af Amer 92, Est GFR (MDRD) Non-Af 76, BUN/Creatinine Ratio 19.1, Glucose 350 H, Calcium 9.2, Troponin I High Sens 6, TSH 6.15 H 10/02/22 11:20: PT 13.5, INR 1.1, APTT 27.3 10/02/22 11:20: Troponin I High Sens 8 10/02/22 11:20: Total T3 1.17 10/02/22 11:20: Magnesium 1.8, Free T4 1.03 10/02/22 11:20: Phosphorus 3.4 10/02/22 14:05: Troponin I High Sens 8 10/03/22 04:27: WBC 8.3, RBC 4.58, Hgb 13.5, Hct 40.4, MCV 88.2, MCH 29.5, MCHC 33.4, RDW Std Deviation 43.3, RDW Coeff of Amilcar 13.4, Plt Count 312, MPV 9.7, Immature Gran % (Auto) 0.200, Neut % (Auto) 58.9, Lymph % (Auto) 33.3, [place] % (Auto) 5.5, Eos % (Auto) 1.4, Baso % (Auto) 0.7, Absolute Neuts (auto) 4.9, Absolute Lymphs (auto) 2.77, Nucleated RBC % 0 10/03/22 04:27: Sodium 133 L, Potassium 4.4, Chloride 102, Carbon Dioxide 22.0, Anion Gap 9, BUN 21 H, Creatinine 0.74, Estim Creat Clear Calc 96.17, Est GFR (MDRD) Af Amer 106, Est GFR (MDRD) Non-Af 88, BUN/Creatinine Ratio 28.5 H, Glucose 297 H, Calcium 9.0, Triglycerides 398 H, Cholesterol 171, LDL Cholesterol 65, VLDL Cholesterol 80 H, HDL Cholesterol 26 L Physical Exam Narrative monitor car operator reviewed. Patient is still in A. fib with heart rate in 90s. No chest pain or shortness of breath. General: Alert, Oriented x3, Cooperative, morbid obesity BMI 53.4 kg/m? HEENT: Atraumatic, PERRLA, EOMI, Normocephalic Oral: Deep oropharyngeal could not be visualized. No oral ulcer. Neck: Supple, No JVD, Negative Carotid Bruits Lungs: Air entry diminished in bilateral lung bases. No crepitation/rhonchi Cardiovascular: A. fib, heart rate controlled, Normal S1, Normal S2, No murmurs Abdomen: Bowel Sounds Present, Soft, Non Tender, Non-Distended : No renal angle tenderness. No suprapubic tenderness. Extremities: Mild nonpitting edema, Capillary Refill Less than 3 Seconds Skin: No rashes, No breakdown Musculoskeletal: No Tenderness to Palpation of Joints or Extremities, ROM restricted. Neurological: Cranial nerves II-XII grossly intact, DTR 2+/4 and Symmetrical, Neuro grossly intact Psych/Mental Status: Normal Affect, Appropriate. Weight / BMI Weight Weight: 353 lb 2.888 oz Body Mass Index (BMI) 50.7 ABG / Lab / Microbiology Data Result Diagrams: 10/03/22 04:27 10/03/22 04:27 Laboratory: Laboratory Results - last 24 hr 10/03/22 16:18: POC Glucose 221 H 10/03/22 21:16: POC Glucose 233 H 10/04/22 06:19: POC Glucose 294 H 10/04/22 10:36: POC Glucose 279 H D/C Instructions Discharge Diet: Low fat / Low cholesterol, 1800 Calorie Control Diet and 2000 mg Sodium Diet Call your doctor if you observe: Fever of 101 or Higher, Coldness, Increased Pain, Numbness or Tingling, Change in Color, Inability to urinate, Inability to have a bowel movement, Shortness of breath, Dizziness, Fainting spells, Swelling in the ankles, Chest pain, Prolonged hiccupping, Increased palpitations (irregular heartbeat), Calf discomfort and Uncontrolled pain Meaningful Use Info Meaningful Use Diagnoses (Choose all that apply): None applicable Discharge Plan Admission Admit Date/Time: 10/02/22 12:04 Attending Provider: Garry Ross Primary Care Provider: Shane Velasco Discharge Orders/Prescriptions Prescriptions: New metoprolol tartrate 100 mg Tablet 100 mg PO BID Qty: 60 2RF Eliquis 5 mg Tablet 5 mg PO BID Qty: 60 2RF atorvastatin 40 mg Tablet 40 mg PO QHS Qty: 30 2RF sennosides-docusate sodium [Stool Softener-Stimulant Laxat] 8.6-50 mg Tablet 2 tab PO BID PRN PRN (Reason: Constipation) Qty: 0 0RF diltiazem HCl 120 mg Capsule,Extended Release 24hr 180 mg PO Q12 Qty: 60 2RF Continued glipizide [Glucotrol XL] 10 MG tablet extended release 24hr 10 mg PO BID amlodipine 5 MG tablet 10 mg PO DAILY metformin 1,000 MG tablet 1,000 mg PO BIDCM losartan 100 MG tablet 100 mg PO DAILY cholecalciferol (vitamin D3) 50 mcg (2,000 unit) tablet 50 mcg PO DAILY Label Comments: TAKE 1 TABLET BY MOUTH ONCE DAILY Ozempic 0.25 mg or 0.5 mg(2 mg/1.5 mL) pen injector 0.25 mg SUBCUT SA Label Comments: INJECT 0.25 MG SUBCUTANEOUSLY ONE TIME A WEEK FOR 30 DAYS, THEN 0.5 MG ONE TIME A WEEK valacyclovir 500 mg tablet 500 mg PO DAILY Label Comments: TAKE 1 TABLET BY MOUTH ONCE DAILY. PATIENT WILL NEED TO BE SEEN BEFORE ANYMORE REFILLS Discontinued metoprolol tartrate 50 MG tablet 50 mg PO BID Referrals / Follow Up: Oral Tran MD [Med Staff - Active Staff] - Within 1 Month (in 3-4 weeks for trial of cardioversion) Shane Velasco MD [Primary Care Provider] - Within 2 Weeks (for new onset Afib) Anita Mcbride MD [Non-Staff] - Disposition Disposition (needs filled in before D/C Order can be placed): Home, Self Care Charges/Coding Visit Charges Inpatient E&M: 74534 Disch Hosp
--- NOTE | 2022-10-04 11:59 | CASEMGMT ---
Pt to be sent home on Eliquis and call to [facility] to check co-pay. Per tech, pt's co-pay is $30. Pt already provided co-pay card by Lucio Meadows RN, CM. Pt updated on cost and also provided Eliquis 30 day free trial card, voices understanding. Pt voices no further questions/concerns/needs with discharge. Fredis SCHAEFER CM
--- NOTE | 2022-10-04 12:47 | PHA.DC.MC ---
Pharmacy Service has performed discharge medication reconciliation and counseling for this patient. 1. APIXABAN 5MG PO BID 2. ATORVASTATIN 40MG PO QHS 3. DILTIAZEM 180MG PO Q12 4. SENNA/DOCUSATE 2T PO BID PRN CONSTIPATION The patient's discharge medication list was reviewed for discrepancies and discrepancies were resolved. Home Medications amlodipine 5 mg tablet 10 mg PO DAILY 09/24/16 glipizide 10 mg tablet, extended release 24 hr (Glucotrol XL) 10 mg PO BID 09/24/16 losartan 100 mg tablet 100 mg PO DAILY 09/24/16 metformin 1,000 mg tablet 1,000 mg PO BIDCM 09/24/16 cholecalciferol (vitamin D3) 50 mcg (2,000 unit) tablet 50 mcg PO DAILY 10/02/22 semaglutide 0.25 mg or 0.5 mg (2 mg/1.5 mL) subcutaneous pen injector (Ozempic) 0.25 mg subcut SA 10/02/22 valacyclovir 500 mg tablet 500 mg PO DAILY 10/02/22 apixaban 5 mg tablet (Eliquis) 5 mg PO BID #60 tabs 10/04/22 atorvastatin 40 mg tablet 40 mg PO QHS #30 tabs 10/04/22 diltiazem HCl 120 mg capsule,extended release 24 hr 180 mg PO Q12 #60 caps 10/04/22 metoprolol tartrate 100 mg tablet 100 mg PO BID #60 tabs 10/04/22 sennosides 8.6 mg-docusate sodium 50 mg tablet (Stool Softener-Stimulant Laxative) 2 tab PO BID PRN PRN Constipation #0 tabs 10/04/22 The patient was counseled on the following discharge medications and changes in medications for homegoing were reviewed. The Reason for Use, instructions for use, and potential side effects were reviewed for all new medications. The patient's questions regarding all of their medications were answered. The patient was able to verbally demonstrate an understanding of their discharge medications.
== END 2022-10-04 15:35 | disposition home or self-care (01) | DRG 309 ==
LOC: ED 09:36 → PCU 10-03 08:09
PROVIDERS: Admitting Provider Internal Medicine; Emergency Provider Emergency Medicine; PCP Family Medicine; Visit Provider Internal Medicine
DX: I48.91 Unspecified atrial fibrillation (principal); Z68.43 Body mass index [BMI] 50.0-59.9, adult; E66.01 Morbid (severe) obesity due to excess calories; E11.65 Type 2 diabetes mellitus with hyperglycemia; I10 Essential (primary) hypertension; E78.5 Hyperlipidemia, unspecified; Z71.3 Dietary counseling and surveillance; Z79.84 Long term (current) use of oral hypoglycemic drugs; Z79.82 Long term (current) use of aspirin; Z79.899 Other long term (current) drug therapy; Z87.891 Personal history of nicotine dependence
CPT/HCPCS: 36415; 71045; 80048; 80061; 80076; 82962; 83735; 84100; 84439; 84443; 84480; 84484; 85025; 85610; 85730; 93005; 93306; 97802; 99285; J7030; Q9957; A4216; C8929

== ENCOUNTER 2022-12-16 21:50 | Emergency (ER) | payer OTHER, SELFPAY ==
[2022-12-16 21:50] VITALS: BP 124/105; PULSE 92; RESP 16; TEMP 36.2; O2SAT 98; BMI 55.1
--- NOTE | 2022-12-16 23:19 | EDS_ITS ---
HPI History of Present Illness Chief Complaint: Rash Narrative Narrative: Patient is a 52-year-old female with past medical history of paroxysmal atrial fibrillation hypertension and diabetes. She states that roughly 2 hours prior to arrival she was eating and then noticed a rash to her right and left hand. She states the rash is itchy in nature and other than the new food she denies any exposure. She also denies any trouble breathing or swallowing. Patient states she googled rash and the result suggest that she could have meningitis which concerned her and therefore she comes in for evaluation. [facility] Medical History Diabetes Hypertension Home Medications amlodipine 5 mg tablet 10 mg PO DAILY 09/24/16 [History Last Taken 10/01/22] glipizide 10 mg tablet, extended release 24 hr (Glucotrol XL) 10 mg PO BID 09/24/16 [History Last Taken 10/01/22] losartan 100 mg tablet 100 mg PO DAILY 09/24/16 [History Last Taken Unknown] metformin 1,000 mg tablet 1,000 mg PO BIDCM 09/24/16 [History Last Taken 10/01/22] cholecalciferol (vitamin D3) 50 mcg (2,000 unit) tablet 50 mcg PO DAILY 10/02/22 [History Last Taken 10/01/22] semaglutide 0.25 mg or 0.5 mg (2 mg/1.5 mL) subcutaneous pen injector (Ozempic) 0.25 mg subcut SA 10/02/22 [History Last Taken 09/23/22] valacyclovir 500 mg tablet 500 mg PO DAILY 10/02/22 [History Last Taken 10/01/22] apixaban 5 mg tablet (Eliquis) 5 mg PO BID #60 tabs 10/04/22 [Rx Last Taken Unknown] atorvastatin 40 mg tablet 40 mg PO QHS #30 tabs 10/04/22 [Rx Last Taken Unknown] diltiazem HCl 180 mg capsule,24 hr,extended release 180 mg PO BID 30 days #60 caps 10/04/22 [Rx Last Taken Unknown] metoprolol tartrate 100 mg tablet 100 mg PO BID #60 tabs 10/04/22 [Rx Last Taken Unknown] sennosides 8.6 mg-docusate sodium 50 mg tablet (Stool Softener-Stimulant Laxative) 2 tab PO BID PRN PRN Constipation #0 tabs 10/04/22 [Rx Last Taken Unknown] desonide 0.05 % topical cream 1 applic topical TID PRN itching #60 grams 12/16/22 [Rx Last Taken Unknown] Allergy/AdvReac Type Severity Reaction Status Date / Time lisinopril AdvReac Other Verified 12/16/22 21:52 Surgical History H/O parathyroidectomy Social History Smoking Status: Never smoker ROS ROS ED Constitutional Constitutional ED: Denies chills or fever(s) ENT ENT ED: Denies sore throat Cardiovascular Cardiovascular: Denies chest pain Respiratory/Chest Respiratory/Chest: Denies cough or dyspnea Gastrointestinal Gastrointestinal: Denies abdominal pain, diarrhea, nausea or vomiting Genitourinary Genitourinary ED: Denies dysuria Musculoskeletal Musculoskeletal: Denies myalgias Integumentary Reports rash Neurologic Neurologic: Denies headache(s) Hematologic/Lymphatic Hematologic/Lymphatic: Reports easy bleeding and easy bruising EXAM Physical Exam Const Vital Signs: 12/16/22 21:50 Temperature 97.1 F L Temperature Source Temporal Pulse Rate 92 Respiratory Rate 16 Blood Pressure 124/105 H Blood Pressure Mean 111 Pulse Ox 98 Oxygen Delivery Method Room Air Positive well nourished and well developed General Appearance ED: well developed HEENT Reports moist mucous membranes HEENT Narrative: No tongue or lip swelling no oral lesions no airway edema or compromise Eyes PERRL and EOMs intact bilaterally Neck supple Neck Narrative: No no nuchal rigidity or meningeal signs noted Resp normal respiratory effort and clear to auscultation bilaterally Cardio regular rate and regular rhythm Extremity Extremity Narrative: Patient has a erythematous blanchable urticarial rash to the dorsal aspect of bilateral hands that extends slightly up into the distal forearm. There is no involvement of the palms or soles. Otherwise remainder the extremity exam is normal Neuro oriented x3 and CN's II-XII intact bilaterally Sensorium / Orientation: alert Psych mental status grossly normal Skin Skin Narrative: Soft tissue changes to the dorsal aspects of each hand as documented above most consistent with acute allergic reaction/contact dermatitis and urticaria without secondary changes to suggest infection. The rash is erythematous and blanchable there are no petechial lesions noted MDM MDM MDM Narrative Medical decision making narrative: Patient presented to the ER hypertensive but has a past medical history of this and therefore this was not concerning. She reported onset of rash to the dorsal aspect of her hand roughly 2 hours prior to arrival. It is pruritic in nature. The rash is erythematous and blanchable it is not petechial and there is no involvement of the palms or soles and therefore my concern for an infectious process is low and I do not feel there is need for work-up. Patient also has no signs of oral lesions or respiratory distress so therefore there is no need for emergent intervention. Patient her diabetic status we will place her on a topical steroid cream and she will use Benadryl and Pepcid for any further itch relief but at this time as she has no obvious signs of infection or respiratory distress she is otherwise safe for discharge. Discharge Plan Triage Chief Complaint: Rash ED Provider: Adalberto Hickman Dx/Rx/DC Orders Clinical Impression: Contact dermatitis, History of atrial fibrillation, Type 2 diabetes mellitus, Current use of audiovisual tech anticoagulation Instructions: ED General Allergic Reactions, ED Contact Dermatitis Prescriptions: New desonide 0.05 % cream 1 applic topical TID PRN (Reason: itching) Qty: 60 0RF No Action glipizide [Glucotrol XL] 10 MG tablet extended release 24hr 10 mg PO BID amlodipine 5 MG tablet 10 mg PO DAILY metformin 1,000 MG tablet 1,000 mg PO BIDCM losartan 100 MG tablet 100 mg PO DAILY cholecalciferol (vitamin D3) 50 mcg (2,000 unit) tablet 50 mcg PO DAILY Label Comments: TAKE 1 TABLET BY MOUTH ONCE DAILY Ozempic 0.25 mg or 0.5 mg(2 mg/1.5 mL) pen injector 0.25 mg SUBCUT SA Label Comments: INJECT 0.25 MG SUBCUTANEOUSLY ONE TIME A WEEK FOR 30 DAYS, THEN 0.5 MG ONE TIME A WEEK valacyclovir 500 mg tablet 500 mg PO DAILY Label Comments: TAKE 1 TABLET BY MOUTH ONCE DAILY. PATIENT WILL NEED TO BE SEEN BEFORE ANYMORE REFILLS metoprolol tartrate 100 mg Tablet 100 mg PO BID Qty: 60 2RF Eliquis 5 mg Tablet 5 mg PO BID Qty: 60 2RF atorvastatin 40 mg Tablet 40 mg PO QHS Qty: 30 2RF sennosides-docusate sodium [Stool Softener-Stimulant Laxat] 8.6-50 mg Tablet 2 tab PO BID PRN PRN (Reason: Constipation) Qty: 0 0RF diltiazem HCl 180 mg capsule,extended release 24 hr 180 mg PO BID 30 Days Qty: 60 2RF Rx Instructions: Hold for heart less than 60 or systolic blood pressure less than 100 mmHg. Primary Care Provider: Shane Velasco Referrals: Shane Velasco MD [Primary Care Provider] - Activity Restrictions/Additional Instructions: Your history and exam indicates this is an acute allergic reaction and not an infectious process. Take Benadryl to help control any rash or itch and use the topical steroid cream as needed for further rash/itch control. If you develop a fever over 100.4 or have difficulty breathing or swallowing please return for repeat evaluation. Disposition Disposition: Home, Self Care Discharge Date/Time: 12/16/22 23:24
== END 2022-12-16 23:24 | disposition home or self-care (01) ==
PROVIDERS: Emergency Provider Emergency Medicine; PCP Family Medicine; Visit Provider Emergency Medicine
DX: L25.9 Unspecified contact dermatitis, unspecified cause (principal); I48.0 Paroxysmal atrial fibrillation; E11.9 Type 2 diabetes mellitus without complications; Z79.4 Long term (current) use of insulin; I10 Essential (primary) hypertension; Z86.79 Personal history of other diseases of the circulatory system; Z79.01 Long term (current) use of anticoagulants; Z79.84 Long term (current) use of oral hypoglycemic drugs; Z79.899 Other long term (current) drug therapy
CPT/HCPCS: 99282

== ENCOUNTER 2023-02-15 18:18 | Emergency (ER) | payer OTHER, SELFPAY ==
[2023-02-15 18:19] VITALS: BP 162/108; PULSE 86; RESP 20; TEMP 36.1; O2SAT 100
[2023-02-15 18:38] VITALS: BMI 55.2
[2023-02-15 18:40] VITALS: RESP 19
--- NOTE | 2023-02-15 18:48 | ED.VIS.LOWEX ---
HPI History of Present Illness Chief Complaint: Lower Extremity Injury Informant: patient Onset/Context/Timing Onset: Days (2) Context: Gradual Onset Timing: Continuous Quality of Pain: Aching Location: L knee Current Severity: Moderate Maximum Severity: Severe Worsened by: movement, WBing Relieved by: remaining still Associated Symptoms Associated Symptoms: Negative for Parasthesia, Weakness or Loss of Funtion Narrative Narrative: 52-year-old female presenting with gradual onset pain in the left knee. She denies any injury. She has had pains in her knees and ankles in the past but nothing like this. Hurts to move, better to remain still. She states she has lower extremity edema, usually on a diuretic which she did not take today, so she cannot tell if it swollen or not but did not notice anything major. She is on Eliquis because of a history of atrial fibrillation. No bleeding recently. No fevers or chills. She is a diabetic. Does not frequently get cellulitis or infections in her legs. No known history of gout, but she has never had a joint hurt that she had to go to the doctor specifically for and get an arthrocentesis. [facility] Medical History (Updated 02/15/23 @ 20:[address] Talon Jaramillo MD) A-fib Diabetes Hypertension Hypothyroidism Home Medications amlodipine 5 mg tablet 10 mg PO DAILY 09/24/16 [History Last Taken 10/01/22] glipizide 10 mg tablet, extended release 24 hr (Glucotrol XL) 10 mg PO BID 09/24/16 [History Last Taken 10/01/22] losartan 100 mg tablet 100 mg PO DAILY 09/24/16 [History Last Taken Unknown] metformin 1,000 mg tablet 1,000 mg PO BIDCM 09/24/16 [History Last Taken 10/01/22] cholecalciferol (vitamin D3) 50 mcg (2,000 unit) tablet 50 mcg PO DAILY 10/02/22 [History Last Taken 10/01/22] semaglutide 0.25 mg or 0.5 mg (2 mg/1.5 mL) subcutaneous pen injector (Ozempic) 0.25 mg subcut SA 10/02/22 [History Last Taken 09/23/22] valacyclovir 500 mg tablet 500 mg PO DAILY 10/02/22 [History Last Taken 10/01/22] apixaban 5 mg tablet (Eliquis) 5 mg PO BID #60 tabs 10/04/22 [Rx Last Taken Unknown] atorvastatin 40 mg tablet 40 mg PO QHS #30 tabs 10/04/22 [Rx Last Taken Unknown] diltiazem HCl 180 mg capsule,24 hr,extended release 180 mg PO BID 30 days #60 caps 10/04/22 [Rx Last Taken Unknown] metoprolol tartrate 100 mg tablet 100 mg PO BID #60 tabs 10/04/22 [Rx Last Taken Unknown] sennosides 8.6 mg-docusate sodium 50 mg tablet (Stool Softener-Stimulant Laxative) 2 tab PO BID PRN PRN Constipation #0 tabs 10/04/22 [Rx Last Taken Unknown] desonide 0.05 % topical cream 1 applic topical TID PRN itching #60 grams 12/16/22 [Rx Last Taken Unknown] prednisone 20 mg tablet 40 mg PO DAILY #10 TABLETS 02/15/23 [Rx Last Taken Unknown] Allergy/AdvReac Type Severity Reaction Status Date / Time lisinopril AdvReac Other Verified 02/15/23 18:44 Surgical History H/O parathyroidectomy Social History Smoking Status: Never smoker ROS ROS ED Constitutional Constitutional ED: Denies chills or fever(s) Cardiovascular Cardiovascular: Denies chest pain, palpitations or syncope Respiratory/Chest Respiratory/Chest: Denies cough or dyspnea Musculoskeletal Musculoskeletal: Reports extremity pain; Denies neck pain Integumentary Denies Abrasions, rash or wounds Neurologic Neurologic: Denies headache(s), paresthesias or weakness EXAM Physical Exam Const Vital Signs: 02/15/23 18:19 02/15/23 18:40 Temperature 97 F L Temperature Source Temporal Pulse Rate 86 Respiratory Rate 20 H 19 H Blood Pressure 162/108 H Blood Pressure Mean 126 Pulse Ox 100 Oxygen Delivery Method Room Air Room Air Positive well nourished, well developed and obese General Appearance ED: well developed and NAD Nutritional Appearance: obese Neck full ROM and supple Back/Spine normal ROM and normal to inspection Extremity Extremity Narrative: Limited range of motion of the left knee. Difficult to detect an effusion due to lower extremity edema plus or minus obesity. The left knee is normal and skin color, the same as the contralateral. She has diffuse mild tenderness. It is mildly warm compared with the contralateral side but I would not classify it as feeling hot. On inspection both lower extremities are symmetric-appearing with some signs of chronic stasis dermatitis near the ankles. Edema is mild-moderate and symmetric to the knees. I can do short arc passive range of motion without significant difficulty, but any more than this creates significant pain, as does active range of motion. All ligaments stable, cruciate ligaments are of limited evaluation since she cannot bend very far. Neuro oriented x3, no focal motor deficits and no sensory deficits noted Sensorium / Orientation: alert Psych mental status grossly normal and thought process normal Skin no wounds Rashes: no rashes MDM MDM MDM Narrative Medical decision making narrative: Patient is anticoagulated, a relative contraindication to performing an arthrocentesis. Therefore restarted with x-rays, 4 views of my interpretation show no acute bony abnormality, radiology agrees with my interpretation that there is a small effusion. Given her symptoms, crystal induced arthritis is in the differential diagnosis as is [id number] osteoarthritis causing effusion which is causing her pain, and/or septic arthritis. Labs show a white blood count of 10.3 this is in the normal range, there is a slight predilection for neutrophils but no significant left shift or bandemia, her ESR is within normal limits. These argue against an acute septic arthritis as does her exam, she understands this is not able to be completely ruled out without an arthrocentesis and sending a culture. Her CRP is a little elevated this is nonspecific indicator for inflammation. Her uric acid is within normal limits this does not rule out the possibility of gout and certainly does not rule out the possibility of pseudogout. We discussed risk and benefits of everything including arthrocentesis, she is in agreement to pass on that right now. I think giving her a short course of prednisone would be reasonable, if her symptoms get worse or she develops a fever, she discontinues and returned immediately to the emergency department for further evaluation, if it improves and everything resolves she follows up with her doctor, if it does not resolve, she follows up with orthopedics. She is comfortable with that plan. We also discussed watching her blood sugars, and taking an extra glipizide since she is not on insulin only if her blood sugars go over 400. Lab Data Attestation: I reviewed the patient's lab results. Labs: Laboratory Results - last 24 hr 02/15/23 02/15/23 18:56 18:56 WBC 10.3 RBC 4.32 Hgb 12.6 Hct 38.3 MCV 88.7 MCH 29.2 MCHC 32.9 RDW Std Deviation 47.3 H RDW Coeff of Amilcar 14.7 H Plt Count 322 MPV 9.4 Immature Gran % (Auto) 0.300 Neut % (Auto) 76.1 H Lymph % (Auto) 16.6 L Mellette % (Auto) 5.8 Eos % (Auto) 0.8 Baso % (Auto) 0.4 Absolute Neuts (auto) 7.8 H Absolute Lymphs (auto) 1.70 Nucleated RBC % 0 ESR 21 Sodium 135 L Potassium 4.1 Chloride 102 Carbon Dioxide 27.0 Anion Gap 6 BUN 12 Creatinine 0.86 Estim Creat Clear Calc 74.41 Est GFR (MDRD) Af Amer 89 Est GFR (MDRD) Non-Af 74 BUN/Creatinine Ratio 14.0 Glucose 175 H Uric Acid 4.0 Calcium 8.0 L C-React Prot Ext Range 29.70 H Radiography Diagnostic Testing: Clinical Impression(s) from Imaging Studies Knee X-Ray 02/15/23 19:12 IMPRESSION: Small joint effusion. Soft tissue swelling. Electronically Signed: Mayra Campoverde MD at 19:42 EDT Reading Location ID and State: [id number] / Tel , Service support , Discharge Plan Triage Chief Complaint: Lower Extremity Injury ED Provider: Talon Jaramillo Dx/Rx/DC Orders Clinical Impression: Knee effusion, left, Anticoagulated Instructions: ED Gout, ED Knee Effusion, ED Gout Diet Prescriptions: New prednisone 20 mg tablet 40 mg PO DAILY Qty: 10 0RF No Action glipizide [Glucotrol XL] 10 MG tablet extended release 24hr 10 mg PO BID amlodipine 5 MG tablet 10 mg PO DAILY metformin 1,000 MG tablet 1,000 mg PO BIDCM losartan 100 MG tablet 100 mg PO DAILY cholecalciferol (vitamin D3) 50 mcg (2,000 unit) tablet 50 mcg PO DAILY Label Comments: TAKE 1 TABLET BY MOUTH ONCE DAILY Ozempic 0.25 mg or 0.5 mg(2 mg/1.5 mL) pen injector 0.25 mg SUBCUT SA Label Comments: INJECT 0.25 MG SUBCUTANEOUSLY ONE TIME A WEEK FOR 30 DAYS, THEN 0.5 MG ONE TIME A WEEK valacyclovir 500 mg tablet 500 mg PO DAILY Label Comments: TAKE 1 TABLET BY MOUTH ONCE DAILY. PATIENT WILL NEED TO BE SEEN BEFORE ANYMORE REFILLS metoprolol tartrate 100 mg Tablet 100 mg PO BID Qty: 60 2RF Eliquis 5 mg Tablet 5 mg PO BID Qty: 60 2RF atorvastatin 40 mg Tablet 40 mg PO QHS Qty: 30 2RF sennosides-docusate sodium [Stool Softener-Stimulant Laxat] 8.6-50 mg Tablet 2 tab PO BID PRN PRN (Reason: Constipation) Qty: 0 0RF diltiazem HCl 180 mg capsule,extended release 24 hr 180 mg PO BID 30 Days Qty: 60 2RF Rx Instructions: Hold for heart less than 60 or systolic blood pressure less than 100 mmHg. desonide 0.05 % cream 1 applic topical TID PRN (Reason: itching) Qty: 60 0RF Primary Care Provider: Shane Velasco Referrals: Shane Velasco MD [Primary Care Provider] - 1-2 Weeks Chema Joshi MD [Med Staff - Active Staff] - 3-5 Days if not improving Activity Restrictions/Additional Instructions: If in 1-2 days while on prednisone pain is getting worse and/where you are getting fevers, chills, redness in the affected knee, discontinue the prednisone immediately and return to the ER immediately for reevaluation. Disposition Disposition: Home, Self Care
--- NOTE | 2023-02-15 19:12 | RAD_ITS ---
INDICATION: pain EXAMINATION/TECHNIQUE: X-RAY - LEFT XR Knee Complete 4 Views or More 4 VIEWS COMPARISON: None. FINDINGS: No acute fracture. Mild lateral subluxation of the patella. Small joint effusion. Joint spaces are otherwise well-maintained. Normal alignment. Marked soft tissue swelling around the knee. No radiopaque foreign body or soft tissue gas. RAD/Knee 4 or More Views IMPRESSION: Small joint effusion. Soft tissue swelling. Electronically Signed: Mayra Campoverde MD at 19:42 EDT Reading Location ID and State: [id number] / Tel , Service support ,
[2023-02-15 19:26] LABS: Absolute Neutrophil Count 7.8 X10^3/uL (2.0-7.7); Basophil# 0.04 X10^3/uL; Basophil% 0.4 % (0-1); Eosinophil# 0.08 X10^3/uL; Eosinophils% 0.8 % (0-5); Hematocrit 38.3 % (37-47); Hemoglobin 12.6 g/dL (12.0-15.0); Lymphocyte % 16.6 % (19-41); Mean Corp Hgb Conc 32.9 g/dL (32-36); Mean Corpuscular Hgb 29.2 pg (27.0-32.0); Mean Corpuscular Volume 88.7 fL (81-99); Mean Platelet Vol. 9.4 fl (6.2-12.0); Monocyte% 5.8 % (0-10); NRBC Flagged by Analyzer 0 % (0-5); Neutrophil # 7.81 X10^3/uL (2.7-7.7); Neutrophil % 76.1 % (47-70); Platelet Count 322 K/mm3 (150-450); RBC Distribution Width CV 14.7 % (11.6-14.6); RBC Distribution Width SD 47.3 fl (35.1-43.9); Red Blood Count 4.32 M/mm3 (4.2-5.4); White Blood Count 10.3 K/mm3 (4.4-11.0)
[2023-02-15 19:37] LABS: Anion Gap 6 (5-15); BUN 12 mg/dL (7-18); Chloride 102 mmol/L (98-107); Creatinine, Serum 0.86 mg/dL (0.55-1.02); EST Glomerular Filtration Rate 74 mL/min (>60); Erythrocyte Sedimentation Rate 21 mm/hr (0-30); Est Glom Filt Rate - Afr Amer 89 mL/min (>60); Estimated Creatinine Clearance 74.41 ml/min; Glucose 175 mg/dL (74-106); Potassium 4.1 mmol/L (3.5-5.1); Sodium Level 135 mmol/L (136-145)
[2023-02-15] MEDS: MethylPREDNISolone 125 MG/2 ML Vial IV (20:58)
[2023-02-15 21:04] VITALS: BP 158/60; PULSE 78; RESP 18
== END 2023-02-15 21:05 | disposition home or self-care (01) ==
PROVIDERS: Emergency Provider Emergency Medicine; PCP Family Medicine; Visit Provider Emergency Medicine
DX: M25.462 Effusion, left knee (principal); I48.91 Unspecified atrial fibrillation; E11.9 Type 2 diabetes mellitus without complications; I10 Essential (primary) hypertension; Z79.01 Long term (current) use of anticoagulants; R60.9 Edema, unspecified; Z79.899 Other long term (current) drug therapy; Z79.85 Long-term (current) use of injectable non-insulin antidiabetic drugs; E03.9 Hypothyroidism, unspecified
CPT/HCPCS: 73564; 80048; 84550; 85025; 85652; 86140; 96374; 99283; A4216